=== PATIENT | female | born 1990 | race African-American/Black ===

== ENCOUNTER 2016-12-19 18:58 | Emergency (ER) | payer OTHER, MEDICAID | END 2016-12-19 22:03 | disposition home or self-care (01) | LOC: ER 18:58 | DX: O9A.212 Injury, poisoning and certain other consequences of external causes complicating pregnancy, second trimester (principal); S39.012A Strain of muscle, fascia and tendon of lower back, initial encounter; R10.9 Unspecified abdominal pain; I10 Essential (primary) hypertension; Z3A.26 26 weeks gestation of pregnancy; Z88.5 Allergy status to narcotic agent; Z88.2 Allergy status to sulfonamides; V43.62XA Car passenger injured in collision with other type car in traffic accident, initial encounter; Y93.89 Activity, other specified; Y92.89 Other specified places as the place of occurrence of the external cause; Y99.8 Other external cause status ==